=== PATIENT | male | born 1965 | race Caucasian/White ===

== ENCOUNTER 2020-10-18 18:27 | Emergency (ER) | payer MEDICARE, MEDICAID, SELFPAY ==
--- NOTE | ~2020-10-18 | XR_ITS ---
[XR ribs RT 2V w CXR 2V ] INDICATION: Right rib pain TECHNIQUE: Frontal projection of the upper right ribs, frontal projection of the lower right ribs, ob lique projection of all the right ribs, frontal inspiratory chest x-ray for interpretation. FINDINGS: There are no displaced rib fractures identified. There are no soft tissue abnormality see n. The lungs are clear. IMPRESSION: 1:No displaced rib fractures. Reviewed, dictated and finalized at location A.
--- NOTE | ~2020-10-18 | CT_ITS ---
EXAMINATION: CT brain wo con DATE: 10/18/2020 19:53 INDICATION: Head injury TECHNIQUE: Computed tomography (CT) of the head was performed without intravenous contrast. The dose- length product was 492.82 mGy-cm. Automated exposure control and iterative reconstruction technique w ere employed. COMPARISON: None FINDINGS: Mild generalized atrophy. Chronic right lacunar infarction involving the lentiform nucleus. There is intracranial atherosclerosis. Paranasal sinuses and mastoids are pneumatized. There is a ch ronic right frontal lobe infarction. No acute intracranial hemorrhage, infarction, mass or mass effec t. There are scattered mild periventricular and subcortical white matter changes, most likely related to small vessel ischemic disease (microangiopathy). IMPRESSION: 1. Chronic right frontal lobe and right lacunar infarctions. 2: Chronic age-related findings, accelerated for age. Reviewed, dictated and finalized at location A.
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
[2020-10-18 18:30] VITALS: BP 190/97; PULSE 84; RESP 18; TEMP 36.7; O2SAT 99
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
[2020-10-18 20:16] VITALS: BP 194/80; PULSE 78; RESP 20; O2SAT 97
[2020-10-18 20:28] LABS: Glucose Point of Care 92 mg/dl (65-105)
[2020-10-18 20:29] VITALS: BP 180/105; PULSE 75; RESP 20; O2SAT 100
--- NOTE | 2020-10-18 20:35 | PC.NURSE ---
Called [facility] to transport patient to [facility].
--- NOTE | 2020-10-18 20:35 | PC.NURSE ---
C-Collar applied by RN on arrival in ED Room 1.
--- NOTE | 2020-10-18 21:12 | PC.NURSE ---
Pt's c-collar removed by ED MD Padilla and SAMIRA Terry. [place] collar then applied without difficulty. pt tolerated well
[2020-10-18 21:54] VITALS: BP 180/100; PULSE 88; RESP 20; O2SAT 100
[2020-10-18 22:51] VITALS: BP 180/100; PULSE 88; RESP 18; TEMP 36.7; O2SAT 99
== END 2020-10-18 22:56 | disposition short-term general hospital (02) ==
PROVIDERS: Emergency Provider Emergency Medicine; PCP Physician Assistant
DX: S12.100A Unspecified displaced fracture of second cervical vertebra, initial encounter for closed fracture (principal); S12.200A Unspecified displaced fracture of third cervical vertebra, initial encounter for closed fracture; S12.300A Unspecified displaced fracture of fourth cervical vertebra, initial encounter for closed fracture; S12.400A Unspecified displaced fracture of fifth cervical vertebra, initial encounter for closed fracture; S12.500A Unspecified displaced fracture of sixth cervical vertebra, initial encounter for closed fracture; E11.9 Type 2 diabetes mellitus without complications; T46.5X6A Underdosing of other antihypertensive drugs, initial encounter; I10 Essential (primary) hypertension; V13.4XXA Pedal cycle driver injured in collision with car, pick-up truck or van in traffic accident, initial encounter; Y93.55 Activity, bike riding
CPT/HCPCS: 70450; 71046; 71100; 72125; 72128; 72131; 82948; 99285; L0140